=== PATIENT | female | born 1935 | race Caucasian/White ===

== ENCOUNTER 2016-08-13 01:15 | Emergency (ER) | payer MEDICARE, OTHER ==
[~2016-08-13] VITALS: Ht 154.9 cm; Wt 51.5 kg
[~2016-08-13 01:15] MED LIST: AMLO-145 PO; CLON-429 PO; DONE10TA7 PO; LOSA1TAB29 PO; METH-493 PO; METO-448 PO; ZOLP10TA PO
[2016-08-13 01:34] VITALS: Ht 154.9 cm; Wt 51.5 kg
[2016-08-13] MEDS ORDERED: NICARDipine HCL 30 MG CAPSULE PO ONE (03:30)
[2016-08-13 03:34] LABS: ADD SCAN DIFF NO
[2016-08-13 03:36] LABS: BASOPHIL # 0.1 10^3/ul (0.0-0.1); BASOPHILS % 0.6 % (0.0-2.0); EOSINOPHILS # 0.1 10^3/ul (0.0-0.5); EOSINOPHILS % 0.9 % (0.0-7.0); HEMATOCRIT 33.7 % (37.0-47.0); LYMPHOCYTES # 2.5 10^3/ul (0.8-2.9); LYMPHOCYTES % 31.3 % (15.0-51.0); MEAN CORPUSCULAR HEMOGLOBIN 29.3 pg (29.0-33.0); MEAN CORPUSCULAR HGB CONC 35.6 g/dl (32.0-37.0); MEAN CORPUSCULAR VOLUME 82.4 fl (82.0-101.0); MEAN PLATELET VOLUME 9.4 fl (7.4-10.4); MONOCYTE # 0.5 10^3/ul (0.3-0.9); MONOCYTES % 6.4 % (0.0-11.0); NEUTROPHIL # 4.8 10^3/ul (1.6-7.5); NEUTROPHILS % 60.5 % (39.0-77.0); PLATELET COUNT 381 10^3/UL (140-415); RED BLOOD COUNT 4.09 10^6/ul (4.20-5.40); RED CELL DISTRIBUTION WIDTH 12.8 % (11.5-14.5); WHITE BLOOD COUNT 7.9 10^3/ul (4.8-10.8)
[2016-08-13 04:05] LABS: ANION GAP 18 (8-16); BLOOD UREA NITROGEN 10 mg/dl (7-20); CALCIUM 10.1 mg/dl (8.4-10.2); CARBON DIOXIDE 21 mmol/L (21-31); CHLORIDE 91 mmol/L (97-110); GLUCOSE 114 mg/dl (70-220); POTASSIUM 3.4 mmol/L (3.5-5.1); SODIUM 127 mmol/L (135-144)
--- NOTE | 2016-08-13 04:18 | RADRPT ---
PROCEDURE: CT brain without contrast. CLINICAL INDICATION: Headache. TECHNIQUE: CT scan of the brain was performed on a multi-detector high-resolution CT scanner. Co ntiguous axial images were obtained from the skull base to the vertex without intravenous contrast. Coronal and sagittal reformatted images were also obtained. Images were reviewed on the PACS works tation. One or more of the following dose reduction techniques were used: - Automated exposure control. - Adjustment of the mA and/or kV according to patient size. - Use of iterative reconstruction technique. Exam CTD/vol = 45.01 mGy. Total exam DLP = 720.23 mGy-cm. COMPARISON: 06/21/2012. FINDINGS: The ventricles and cortical sulci are prominent consistent with mild age related volume loss. There is a cavum septum pellucidum. There are patchy areas of low attenuation within the periventricular and subcortical white matter consistent with mild chronic ischemic changes secondary to small vesse l disease. There is no mass effect or midline shift. There is no intracranial hemorrhage or abnorm al extra-axial collection. There are atherosclerotic calcifications within bilateral distal internal carotid arteries. The calvarium is intact. There is no evidence of fracture. Visualized paranasal sinuses and mastoi d air cells are clear. IMPRESSION: No acute intracranial abnormality identified. Mild age related volume loss and chronic ischemic white matter disease. Cerebral atherosclerosis. .Jefferson Ridley MD, MD Date Time Electronically viewed and signed by .Jefferson Ridley MD, MD on 08/13/2016 04:18 .T/
[2016-08-13 04:20] LABS: TROPONIN-I < 0.012 ng/ml (0.00-0.12)
[2016-08-13] MEDS ORDERED: ONDANSETRON 4 MG INJ IV STA (04:44)
[2016-08-13] MEDS ORDERED: LORAZEPAM 2 MG INJ IV ONE (05:00)
--- NOTE | 2016-08-13 05:01 | ERD ---
ER Documentation Chief Complaint Date/Time DATE: 08/13/16 TIME: 04:59 Chief Complaint High BP,nausea, body aches,BROWNLEE HPI This is a 80-year-old female who is here for hypertension. The patient states she can feel her blood pressure is high she has a slight headache and some dizziness. She has no chest pain or shortness of breath. Her usual blood pressure is 100-110 systolic and she said she feels bad even when her blood pressure can get around 140 systolic. At home before coming in her blood pressure was 201 systolic. No focal neurological complaints such as numbness weakness speech or visual change. Again, no chest pain or shortness of breath. ROS All systems reviewed and are negative except as per history of present illness. Medications Home Meds Reported Medications Metoprolol Tartrate* (Lopressor*) Unknown Strength Tab, PO, #60 TAB 05/29/15 Losartan/Hydrochlorothiazide (Hyzaar 100-25 Tablet) 1 Tab Tablet, 1 TAB PO DAILY 10/18/10 Donepezil* (Aricept*) 10 Mg Tablet, 10 MG PO DAILY 10/18/10 Amlodipine Besylate* (Amlodipine Besylate*) 5 Mg Tablet, 5 MG PO DAILY 10/18/10 Zolpidem Tartrate* (Ambien*) 10 Mg Tablet, 10 MG PO QHS 10/18/10 Clonazepam* (Klonopin*) 0.5 Mg Tab, 0.5 MG PO BID 10/18/10 Methimazole* (Methimazole*) 5 Mg Tablet, 5 MG PO DAILY 10/18/10 Allergies Allergies: Coded Allergies: No Known Allergy (Verified , 10/23/13) PMhx/Soc History of Surgery: Yes (hysterectomy) Anesthesia Reaction: No Hx Neurological Disorder: Yes (INSOMNIA; ALZHEIMERS) Hx Respiratory Disorders: No Hx Cardiac Disorders: Yes (HTN) Hx Psychiatric Problems: Yes (ALZHEIMERS) Hx Miscellaneous Medical Probl: No Hx Alcohol Use: No Hx Substance Use: No Hx Tobacco Use: No Smoking Status: Never smoker FmHx Family History: No coronary disease Physical Exam Vitals Vital Signs Date Time Temp Pulse Resp B/P Pulse Ox O2 Delivery O2 Flow Rate FiO2 08/13/16 05:36 98.9 91 12 131/68 98 Room Air 08/13/16 04:36 106 26 114/50 98 Room Air 08/13/16 04:11 95 18 144/61 98 Room Air 08/13/16 03:49 86 18 181/83 96 Room Air 08/13/16 01:34 99.0 89 18 184/86 96 Physical Exam Const: Well-developed, well-nourished Head: Atraumatic, normocephalic Eyes: Normal Conjunctiva, PERRLA, EOMI, normal sclera, no nystagmus ENT: Normal External Ears, Nose and Mouth, moist mucus membranes. Neck: Full range of motion. No meningismus, no lymphadenopathy. Resp: Clear to auscultation bilaterally, no wheezing, rhonchi, rales Cardio: Regular rate and rhythm, no murmurs, S1 S2 present Abd: Soft, non tender x 4, non distended. Normal bowel sounds, no guarding or rebound, no pulsitile abdominal masses or bruits Skin: No petechiae or rashes, no ecchymosis , no maculopapular rash Back: No midline or flank tenderness Ext: No cyanosis, or edema, FROM x 4, normal inspection, neurovascularly intact x 4 Neur: Awake and alert, STR 5/5 x 4, sensation intact x 4, no focal findings, cerebellum intact Psych: [Bit anxious Result Diagram: 08/13/16 0303 08/13/16 0303 Results 24 hrs Laboratory Tests Test 08/13/16 03:03 White Blood Count 7.910^3/ul Red Blood Count 4.0910^6/ul Hemoglobin 12.0g/dl Hematocrit 33.7% Mean Corpuscular Volume 82.4fl Mean Corpuscular Hemoglobin 29.3pg Mean Corpuscular Hemoglobin Concent 35.6g/dl Red Cell Distribution Width 12.8% Platelet Count 40046^3/UL Mean Platelet Volume 9.4fl Neutrophils % 60.5% Lymphocytes % 31.3% Monocytes % 6.4% Eosinophils % 0.9% Basophils % 0.6% Nucleated Red Blood Cells % 0.0/100WBC Neutrophils # 4.810^3/ul Lymphocytes # 2.510^3/ul Monocytes # 0.510^3/ul Eosinophils # 0.110^3/ul Basophils # 0.110^3/ul Nucleated Red Blood Cells # 0.010^3/ul Sodium Level 127mmol/L Potassium Level 3.4mmol/L Chloride Level 91mmol/L Carbon Dioxide Level 21mmol/L Anion Gap 18 Blood Urea Nitrogen 10mg/dl Creatinine 0.70mg/dl Glucose Level 114mg/dl Calcium Level 10.1mg/dl Troponin I < 0.012ng/ml Current Medications Medications (Trade) Dose Ordered Sig/Leander Route PRN Reason Start Time Stop Time Status Last Admin Dose Admin Nicardipine HCl (Cardene) 30 mg ONCE ONCE PO 08/13/16 03:30 08/13/16 03:31 DC 08/13/16 03:31 Ondansetron HCl (Zofran Inj) 4 mg ONCE STAT IV 08/13/16 04:44 08/13/16 04:45 DC 08/13/16 04:50 Lorazepam 0.5 mg 0.5 mg ONCE ONCE IV 08/13/16 05:00 08/13/16 05:01 DC 08/13/16 04:59 Sodium Chloride (NS) 250 ml @ 500 mls/hr Q30M ONCE IV 08/13/16 05:30 08/13/16 05:59 08/13/16 05:36 Procedures/MDM EKG: Rate/Rhythm: Sinus tachycardia heart rate [address] and T-wave abnormalities in the inferior and anterolateral leads. QRS, ST, QT: NORMAL OR, QRS, QT] Impression: Abnormal This EKG is exactly like last EKG done in May 2016 no changes PROCEDURE: CT brain without contrast. CLINICAL INDICATION: Headache. TECHNIQUE: CT scan of the brain was performed on a multi-detector high- resolution CT scanner. Contiguous axial images were obtained from the skull base to the vertex without intravenous contrast. Coronal and sagittal reformatted images were also obtained. Images were reviewed on the PACS workstation. One or more of the following dose reduction techniques were used: - Automated exposure control. - Adjustment of the mA and/or kV according to patient size. - Use of iterative reconstruction technique. Exam CTD/vol = 45.01 mGy. Total exam DLP = 720.23 mGy-cm. COMPARISON: 06/21/2012. FINDINGS: The ventricles and cortical sulci are prominent consistent with mild age related volume loss. There is a cavum septum pellucidum. There are patchy areas of low attenuation within the periventricular and subcortical white matter consistent with mild chronic ischemic changes secondary to small vessel disease. There is no mass effect or midline shift. There is no intracranial hemorrhage or abnormal extra-axial collection. There are atherosclerotic calcifications within bilateral distal internal carotid arteries. The calvarium is intact. There is no evidence of fracture. Visualized paranasal sinuses and mastoid air cells are clear. IMPRESSION: No acute intracranial abnormality identified. Mild age related volume loss and chronic ischemic white matter disease. Cerebral atherosclerosis. .Jefferson Ridley MD, Date Time Electronically viewed and signed by .Jefferson Ridley MD, MD on 08/13/2016 04:18 .T/ CC: DEANDRE MACIEL DO During her workup the patient became very anxious with nausea and said that she feels like she is going to . We will give her some Ativan 0.5 mg IV MSIR. So far blood work is unremarkable as well as CAT scan of head. Blood pressure is now 117/70 After the above she is feeling much better give her 2 50 cc normal saline a heart rate is now less than 90 -will discharge home Departure Diagnosis: Primary Impression: Hypertension Hypertension type: essential hypertension Qualified Code: I10 - Essential hypertension Condition: Stable DEANDRE MACIEL DO Aug 13, 2016 05:01
[2016-08-13] MEDS ORDERED: SOD CHLORIDE 0.9% 250 ML IV ONE (05:30)
[2016-08-13 05:36] VITALS: TEMP 98.9
[2016-08-13 06:07] VITALS: BP 126/63; PULSE 81; RESP 16
[2016-08-14] MEDS ORDERED: AMLO5TAB4 PO (20:13)
[2016-08-14] MEDS ORDERED: METO-448 PO (20:13)
[2016-08-14] MEDS ORDERED: RAMI2.5C36 PO (20:14)
[2016-08-14] MEDS ORDERED: ZOLP5TAB7 PO (20:14)
[2016-08-14] MEDS ORDERED: CARV3.1260 PO (20:15)
[2016-08-14] MEDS ORDERED: BENHCT2012 PO (20:15)
== END 2016-08-13 06:29 | disposition home or self-care (01) ==
LOC: E/R 01:15
DX: I10 Essential (primary) hypertension (principal); R51 Headache
CPT/HCPCS: 70450; 80048; 84484; 85025; 93005; J2060; J2405; J7040; 36415; 96374; 96375

== ENCOUNTER 2016-08-14 18:38 | Inpatient (IN) | payer MEDICARE, OTHER ==
[~2016-08-14] VITALS: Ht 149.9 cm; Wt 50.5 kg
[2016-08-14] MEDS ORDERED: ONDANSETRON 4 MG INJ IV STA (19:35)
[2016-08-14] MEDS ORDERED: FAMOTIDINE 20 MG INJ IV STA (19:35)
[2016-08-14] MEDS ORDERED: SOD CHLORIDE 0.9% 1,000 ML IV STA (19:35)
[2016-08-14 19:52] LABS: BASOPHILS % 0.4 % (0.0-2.0); EOSINOPHILS # 0.1 10^3/ul (0.0-0.5); EOSINOPHILS % 1.1 % (0.0-7.0); HEMATOCRIT 30.7 % (37.0-47.0); HEMOGLOBIN 10.8 g/dl (12.0-16.0); LYMPHOCYTES # 1.4 10^3/ul (0.8-2.9); LYMPHOCYTES % 19.6 % (15.0-51.0); MEAN CORPUSCULAR HEMOGLOBIN 28.5 pg (29.0-33.0); MEAN CORPUSCULAR HGB CONC 35.2 g/dl (32.0-37.0); MONOCYTE # 0.4 10^3/ul (0.3-0.9); MONOCYTES % 4.9 % (0.0-11.0); NEUTROPHIL # 5.4 10^3/ul (1.6-7.5); NEUTROPHILS % 73.7 % (39.0-77.0); PLATELET COUNT 343 10^3/UL (140-415); RED BLOOD COUNT 3.79 10^6/ul (4.20-5.40); RED CELL DISTRIBUTION WIDTH 12.6 % (11.5-14.5); WHITE BLOOD COUNT 7.3 10^3/ul (4.8-10.8)
[2016-08-14] MEDS ORDERED: AMLO5TAB4 PO (20:13)
[2016-08-14] MEDS ORDERED: METO-448 PO (20:13)
[2016-08-14] MEDS ORDERED: ZOLP5TAB7 PO (20:14)
[2016-08-14] MEDS ORDERED: RAMI2.5C36 PO (20:14)
[2016-08-14 20:15] LABS: ALANINE AMINOTRANSFERASE 29 IU/L (13-69); ALBUMIN 4.9 g/dl (3.3-4.9); ALBUMIN/GLOBULIN RATIO 1.75; ALKALINE PHOSPHATASE 81 IU/L (42-121); ANION GAP 14 (8-16); ASPARTATE AMINO TRANSFERASE 18 IU/L (15-46); BILIRUBIN,INDIRECT 0.3 mg/dl (0-1.1); BILIRUBIN,TOTAL 0.3 mg/dl (0.2-1.3); BLOOD UREA NITROGEN 9 mg/dl (7-20); CALCIUM 9.4 mg/dl (8.4-10.2); CARBON DIOXIDE 23 mmol/L (21-31); CHLORIDE 82 mmol/L (97-110); CREATININE 0.63 mg/dl (0.44-1.00); GLUCOSE 108 mg/dl (70-220); POTASSIUM 3.3 mmol/L (3.5-5.1); TOTAL PROTEIN 7.7 g/dl (6.1-8.1)
[2016-08-14] MEDS ORDERED: BENHCT2012 PO (20:15)
[2016-08-14] MEDS ORDERED: CARV3.1260 PO (20:15)
[2016-08-14 20:21] LABS: SODIUM 116 mmol/L (135-144)
[2016-08-14] MEDS ORDERED: SOD CHLORIDE 0.9% 1,000 ML IV SCH (20:23)
--- NOTE | 2016-08-14 20:27 | ERA ---
ER Documentation Chief Complaint Date/Time DATE: 08/14/16 TIME: 20:25 Chief Complaint vomiting/diarrhea/chest pain x 2 days HPI This is a 80-year-old female who presents to the emergency room for evaluation of nausea, vomiting, diarrhea and chest pain. This patient was seen yesterday in the emergency room for uncontrolled hypertension and her blood pressure was controlled and she was discharged home. According to the patient's daughter the patient has been vomiting and has had diarrhea for the past 4 days as well. The patient was complaining of centralized chest pain with no radiation associated with mild shortness of breath. ROS All systems reviewed and are negative except as per history of present illness. Medications Home Meds Reported Medications Carvedilol* (Carvedilol*) 3.125 Mg Tablet, 3.125 MG PO BID, #60 TAB 08/14/16 Olmesartan-Hydrochlorothiazide (Benicar HCT) 20-12.5 Mg Tablet, 1 TAB PO DAILY, #30 TAB 08/14/16 Ramipril (Ramipril) 2.5 Mg Capsule, 2.5 MG PO DAILY, CAP 08/14/16 Zolpidem Tartrate* (Zolpidem Tartrate*) 5 Mg Tablet, 5 MG PO QHS Y for INSOMNIA , #30 TAB 08/14/16 Metoprolol Tartrate* (Lopressor*) 25 Mg Tab, 25 MG PO DAILY, #60 TAB 08/14/16 Amlodipine Besylate* (Norvasc*) 5 Mg Tablet, 5 MG PO DAILY, TAB 08/14/16 Discontinued Reported Medications Metoprolol Tartrate* (Lopressor*) Unknown Strength Tab, PO, #60 TAB 05/29/15 Losartan/Hydrochlorothiazide (Hyzaar 100-25 Tablet) 1 Tab Tablet, 1 TAB PO DAILY 10/18/10 Donepezil* (Aricept*) 10 Mg Tablet, 10 MG PO DAILY 10/18/10 Amlodipine Besylate* (Amlodipine Besylate*) 5 Mg Tablet, 5 MG PO DAILY 10/18/10 Zolpidem Tartrate* (Ambien*) 10 Mg Tablet, 10 MG PO QHS 10/18/10 Clonazepam* (Klonopin*) 0.5 Mg Tab, 0.5 MG PO BID 10/18/10 Methimazole* (Methimazole*) 5 Mg Tablet, 5 MG PO DAILY 10/18/10 Allergies Allergies: Coded Allergies: No Known Allergy (Verified , 08/14/16) PMhx/Soc History of Surgery: Yes (hysterectomy) Anesthesia Reaction: No Hx Neurological Disorder: Yes (INSOMNIA; ALZHEIMERS) Hx Respiratory Disorders: No Hx Cardiac Disorders: Yes (HTN) Hx Psychiatric Problems: Yes (ALZHEIMERS) Hx Miscellaneous Medical Probl: No Hx Alcohol Use: No Hx Substance Use: No Hx Tobacco Use: No Smoking Status: Never smoker Physical Exam Vitals Vital Signs Date Time Temp Pulse Resp B/P Pulse Ox O2 Delivery O2 Flow Rate FiO2 08/14/16 18:42 99.3 86 20 180/79 98 Physical Exam INITIAL VITAL SIGNS: Reviewed by me GENERAL: The patient is well developed and appropriate for usual state of health in no apparent distress HEENT: Pupils equal, round, and reactive to light. EOMI. There is no scleral icterus. NECK: C-spine is soft and supple, there is no meningismus. There is no cervical lymphadenopathy. LUNGS: Clear to auscultation bilaterally. There are no rales, wheezes or rhonchi. HEART: Regular rate and rhythm, no murmurs, clicks, rubs or gallops. ABDOMEN: Soft, non-tender, non-distended. There are bowel sounds in all four quadrants. No rebound or guarding. EXTREMITIES: There is no peripheral cyanosis or edema. No focal swelling or erythema. NEUROLOGICAL: The patient moves all four extremities with 5/5 strength. Cranial nerves II - XII are intact. Normal gait. Alert and oriented SKIN: There is no apparent rash or petechiae. HEME/LYMPHATIC: There is no evidence of excessive bruising or lymphedema. PSYCHIATRIC: The patient does not appear anxious or depressed. Result Diagram: 08/14/16193908/14/161939 Results 24 hrs Laboratory Tests Test 08/14/16 19:40 White Blood Count 7.310^3/ul Red Blood Count 3.7910^6/ul Hemoglobin 10.8g/dl Hematocrit 30.7% Mean Corpuscular Volume 81.0fl Mean Corpuscular Hemoglobin 28.5pg Mean Corpuscular Hemoglobin Concent 35.2g/dl Red Cell Distribution Width 12.6% Platelet Count 90960^3/UL Mean Platelet Volume 9.0fl Neutrophils % 73.7% Lymphocytes % 19.6% Monocytes % 4.9% Eosinophils % 1.1% Basophils % 0.4% Nucleated Red Blood Cells % 0.0/100WBC Neutrophils # 5.410^3/ul Lymphocytes # 1.410^3/ul Monocytes # 0.410^3/ul Eosinophils # 0.110^3/ul Basophils # 0.010^3/ul Nucleated Red Blood Cells # 0.010^3/ul Sodium Level 116mmol/L Potassium Level 3.3mmol/L Chloride Level 82mmol/L Carbon Dioxide Level 23mmol/L Anion Gap 14 Blood Urea Nitrogen 9mg/dl Creatinine 0.63mg/dl Glucose Level 108mg/dl Calcium Level 9.4mg/dl Total Bilirubin 0.3mg/dl Direct Bilirubin 0.00mg/dl Indirect Bilirubin 0.3mg/dl Aspartate Amino Transf (AST/SGOT) 18IU/L Alanine Aminotransferase (ALT/SGPT) 29IU/L Alkaline Phosphatase 81IU/L Troponin I Pending Total Protein 7.7g/dl Albumin 4.9g/dl Globulin 2.80g/dl Albumin/Globulin Ratio 1.75 Lipase 208U/L Current Medications Medications (Trade) Dose Ordered Sig/Leander Route PRN Reason Start Time Stop Time Status Last Admin Dose Admin Sodium Chloride (NS) 1,000 ml @ 1,000 mls/hr Q1H STAT IV 08/14/16 19:35 08/14/16 20:34 08/14/16 20:10 Ondansetron HCl (Zofran Inj) 4 mg ONCE STAT IV 08/14/16 19:35 08/14/16 19:36 DC 08/14/16 20:10 Famotidine (Pepcid Iv) 20 mg ONCE STAT IV 08/14/16 19:35 08/14/16 19:36 DC 08/14/16 20:10 Procedures/MDM EKG: Rate/Rhythm: [Normal Sinus Rhythm] QRS, ST, T-waves: [No changes consistent w/ acute ischemia] Impression: [No evidence of ischemia or arrhythmia] Chest X-ray 1V Interpreted by me: Soft Tissue: No acute abnormalities Bones: No acute abnormalities Mediastinum/Cardiac Silhouette/Lungs: [No acute abnormalities] This 80-year-old female presents to the ER for evaluation of nausea, vomiting, diarrhea and chest pain. When I evaluated this patient she did have dry mucous members however she is in no respiratory distress. Lab work was obtained including EKG which is nonischemic. Troponins negative. However this patient' s sodium came back at 116. Yesterday was greater than 125. Given this patient' s rapid drop in her sodium she will be placed in for admission at this time for hyponatremia, chest pain, nausea vomiting. Patient will be placed on the telemetry floor under the care of Dr. brayan Marquez Diagnosis: Primary Impression: Hyponatremia Additional Impressions: Hypokalemia Nausea, vomiting, and diarrhea Chest pain Condition: Stable SAMIRA MCDONNELL DO Aug 14, 2016 20:27
[2016-08-14] MEDS ORDERED: ONDANSETRON 4 MG INJ IV PRN ×2 (20:30→21:00)
[2016-08-14] MEDS ORDERED: POTASSIUM CHLORIDE 20 MEQ in SOD CHLORIDE 0.9% 100 ML IVPB ONE (20:30)
[2016-08-14] MEDS ORDERED: ACETAMINOPHEN 325 MG TAB PO PRN ×2 (20:30→21:00)
[2016-08-14 20:34] LABS: TROPONIN-I < 0.012 ng/ml (0.00-0.12)
[2016-08-14 20:50] LABS: ADD UMIC YES; UR ASCORBIC ACID NEGATIVE (NEGATIVE); UR BILIRUBIN (Dip) NEGATIVE (NEGATIVE); UR BLOOD (Dip) 1+ mg/dL (NEGATIVE); UR CLARITY CLEAR (CLEAR); UR COLOR STRAW (YELLOW); UR GLUCOSE (Dip) NEGATIVE (NEGATIVE); UR KETONES (Dip) NEGATIVE (NEGATIVE); UR LEUKOCYTE ESTERASE (Dip) 1+ Leu/ul (NEGATIVE); UR NITRITE (Dip) NEGATIVE (NEGATIVE); UR RBC 1 /HPF (0-5); UR SPECIFIC GRAVITY (Dip) 1.005 (1.003-1.030); UR TOTAL PROTEIN (Dip) NEGATIVE (NEGATIVE); UR UROBILINOGEN (Dip) NEGATIVE (NEGATIVE)
--- NOTE | 2016-08-14 20:55 | RADRPT ---
PROCEDURE: XR Chest. CLINICAL INDICATION: 80-year-old female with abdominal pain. TECHNIQUE: Single frontal view of the chest was obtained. COMPARISON: Chest x-ray 05/30/2015 12:00 a.m. FINDINGS: Monitoring electrodes are projecting across the chest. The soft tissues are otherwise unremarkable. There are degenerative osteophytes in the thoracic spine. The bones are rarefied. The heart is m ildly enlarged. The cardiomediastinal silhouette and hilar structures are normal. The pulmonary vas culature is normal. There are vascular calcifications in the aortic arch. There are interstitial ch anges which are stable in the perihilar areas and bases of the lungs. No acute infiltrate is identi fied. The costophrenic angles are normal. IMPRESSION: 1. There are chronic interstitial changes in the perihilar areas and bases of the lungs. 2. Cardiomegaly with atherosclerotic calcifications in the aortic arch. 3. 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 3. No evidence of active cardiopulmonary disease at this time. RPTAT:AAJJ Physician Mell Date Time Electronically viewed and signed by Physician Mell on 08/14/2016 20:55 JM/
[2016-08-14] MEDS ORDERED: NACL 0.9% 3 ML SYG IV SCH (21:00)
[2016-08-14 23:40] LABS: CALCIUM 8.5 mg/dl (8.4-10.2); CREATININE 0.6 mg/dl (0.44-1.00); POTASSIUM 3.6 mmol/L (3.5-5.1)
[2016-08-15] VITALS (14 sets, daily range): BP systolic 112–153; BP diastolic 59–81; PULSE 59–79; RESP 18–19; TEMP 97.3; Ht 149.9 cm; Wt 50.5 kg
[2016-08-15] MEDS ORDERED: ZOLPIDEM 5 MG TAB PO ONE (01:40)
--- NOTE | 2016-08-15 01:50 | HP ---
Date/Time of Note Date/Time of Note DATE: 08/15/16 TIME: 01:46 Assessment/Plan VTE Prophylaxis VTE Prophylaxis Intervention: SCD's Assessment/Plan Chief Complaint/Hosp Course This is a 80-year-old female being admitted to the telemetry floor for: #1 chest pain: Currently patient is chest pain-free. This likely could have been related to patient's uncontrolled blood pressure however given her history we will rule out acs, trend troponins, echo, cardio consult #2 uncontrolled htn: continue current home meds at this time, except we will discontinue HCTZ secondary to hyponatremia. Monitor bp and adjust meds as indicated. #3 Hyponatremia: secondary likely to poor po intake as well as possible overmedication with HCTZ. Will discontinue hctz. We will carefully raise sodium. start iv fluids NS at 50cc/hr. Check bmp q 4hrs and adjust fluids as necessarily being careful not to correct sodium more than 10 meq within 24hrs. Consult nephrology #4 DVT and GI prophylaxis: SCDs, Protonix Further treatment strategy will be implemented as per the clinical course Problems: HPI/ROS Admit Date/Time Admit Date/Time Aug 14, 2016 at 20:23 Hx of Present Illness cc: elevated bp, chest presssure. This is a 80-year-old female who presents to the emergency room for evaluation of nausea, vomiting, diarrhea and chest pain. This patient was seen yesterday in the emergency room for uncontrolled hypertension and her blood pressure was controlled and she was discharged home. According to the patient's daughter the patient has been vomiting and has had diarrhea for the past 4 days as well. The patient was complaining of centralized chest pain with no radiation associated with mild shortness of breath. She also states that the current time her blood pressure was not controlled at home and she took some extra doses of her blood pressure medications and it still did not help with her blood pressure. allergies: nkda meds: see APR MOOKIE Const: As per HPI Eyes : No pain discharge or redness or change in visual acuity ENT: No pain, sore throat, congestion, congestion, dysphagia or discharge Respiratory: No shortness of breath, cough, sputum, wheezing, or pleuritic pain Cardiovascular: As per HPI GI : no change in appetite, abdominal pain, nausea, vomiting, diarrhea, constipation, or change in the color his stool Genitourinary: No dysuria, hematuria, flank pain , discharge or CVA tenderness Musculoskeletal: No joint pain, back pain, neck pain, restricted range of motion in neck or joints Skin: No rash, bruising or hives Neuro: No headache, dizziness, syncope, seizure, focal weakness Endocrine: No polyuria, polydipsia, temperature intolerance Psych: No hallucination, depression, anxiety or suicidal ideation PMH/Family/Social Past Medical History htn, hld Past Surgical History Past Surgical Hx: no surgical history Family History Significant Family History: no pertinent family hx Social History Alcohol Use: none Smoking Status: Never smoker Drug Use: none Exam/Review of Systems Vital Signs Vitals Vital Signs Date Time Temp Pulse Resp B/P Pulse Ox O2 Delivery O2 Flow Rate FiO2 08/15/16 00:48 97.7 67 18 153/81 98 08/15/16 00:03 Room Air Exam Exam General: Patient is a frail a pleasant female in no acute distress HEENT: Atraumatic, normocephalic. The pupils are equal, round and reactive. Extraocular motor are intact, moist mucous membranes Neck: Supple with full range of motion. No rigidity or meningismus Chest: Nontender Lungs: Clear to auscultation bilaterally no crackles rales or wheezing Heart: Normal S1-S2, Regular rhythm and rate. No overt appreciable murmur Abdomen: Soft , nontender, nondistended , bowel sounds are present. No guarding no rebound tenderness , No masses or organomegaly. No costovertebral temporal angle mass Extremities: Normal to inspection, no edema no cyanosis Neurologic: Normal mental status, speech normal, cranial nerves II through XII are intact, motor and sensory are intact, no focal weakness Skin: mild tenting of the skin Additional Comments PROCEDURE: XR Chest. CLINICAL INDICATION: 80-year-old female with abdominal pain. TECHNIQUE: Single frontal view of the chest was obtained. COMPARISON: Chest x-ray 05/30/2015 12:00 a.m. FINDINGS: Monitoring electrodes are projecting across the chest. The soft tissues are otherwise unremarkable. There are degenerative osteophytes in the thoracic spine. The bones are rarefied. The heart is mildly enlarged. The cardiomediastinal silhouette and hilar structures are normal. The pulmonary vasculature is normal. There are vascular calcifications in the aortic arch. There are interstitial changes which are stable in the perihilar areas and bases of the lungs. No acute infiltrate is identified. The costophrenic angles are normal. IMPRESSION: 1. There are chronic interstitial changes in the perihilar areas and bases of the lungs. 2. Cardiomegaly with atherosclerotic calcifications in the aortic arch. 3. 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 3. No evidence of active cardiopulmonary disease at this time. EKG: Rate/Rhythm: [Normal Sinus Rhythm] QRS, ST, T-waves: [No changes consistent w/ acute ischemia] As per ED physician document Labs Result Diagram: 08/14/16 19408/14/16 2300 Medications Medications Current Medications Sodium Chloride (NS) 1,000 ml @ 30 mls/hr Q24H IV Last administered on t 21:21; Admin Dose 50 MLS/HR; Start 08/14/16 at 20:23 Ondansetron HCl (Zofran Inj) 4 mg Q6H PRN IV NAUSEA AND/OR VOMITING; Start at 21:00 Acetaminophen (Tylenol Tab) 650 mg Q6H PRN PO PAIN LEVEL 1-3 OR FEVER; Start at 21:00 Pantoprazole (Protonix Iv) 40 mg DAILY@06 IV ; Start 08/15/16 at 06:00 JUAN DAVID CHU Aug 15, 2016 01:50
[2016-08-15] MEDS ORDERED: ZOLPIDEM 5 MG TAB PO PRN (02:00)
[2016-08-15 04:02] LABS: CALCIUM 8.8 mg/dl (8.4-10.2); CREATININE 0.65 mg/dl (0.44-1.00); POTASSIUM 3.4 mmol/L (3.5-5.1)
[2016-08-15 04:09] LABS: BASOPHILS % 0.5 % (0.0-2.0); EOSINOPHILS # 0.2 10^3/ul (0.0-0.5); EOSINOPHILS % 3.3 % (0.0-7.0); LYMPHOCYTES # 2.8 10^3/ul (0.8-2.9); LYMPHOCYTES % 45.5 % (15.0-51.0); MEAN CORPUSCULAR HEMOGLOBIN 28.3 pg (29.0-33.0); MEAN CORPUSCULAR HGB CONC 34.5 g/dl (32.0-37.0); MEAN CORPUSCULAR VOLUME 82.2 fl (82.0-101.0); MEAN PLATELET VOLUME 9.1 fl (7.4-10.4); MONOCYTE # 0.4 10^3/ul (0.3-0.9); MONOCYTES % 7.1 % (0.0-11.0); NEUTROPHIL # 2.6 10^3/ul (1.6-7.5); NEUTROPHILS % 43.3 % (39.0-77.0); PLATELET COUNT 314 10^3/UL (140-415); RED BLOOD COUNT 3.53 10^6/ul (4.20-5.40); RED CELL DISTRIBUTION WIDTH 12.5 % (11.5-14.5)
[2016-08-15 04:12] LABS: ADD SCAN DIFF NO
[2016-08-15] MEDS: PANTOPRAZOLE 40 MG INJ IV SCH (05:23)
[2016-08-15 07:52] LABS: CREATINE KINASE 64 IU/L (23-200)
[2016-08-15 07:53] LABS: CALCIUM 9.2 mg/dl (8.4-10.2); CREATININE 0.66 mg/dl (0.44-1.00); POTASSIUM 3.5 mmol/L (3.5-5.1)
[2016-08-15 08:02] LABS: CK-MB 1.27 ng/ml (0.0-2.4); TROPONIN-I < 0.012 ng/ml (0.00-0.12)
[2016-08-15] MEDS ORDERED: DEXTROSE 5% 1,000 ML IV SCH (09:00)
[2016-08-15] MEDS: BENAZEPRIL 10 MG TAB PO SCH (09:32)
[2016-08-15] MEDS: METOPROLOL 25 MG TAB PO SCH (09:32)
[2016-08-15] MEDS: AMLODIPINE 5 MG TAB PO SCH (09:33)
[2016-08-15 11:48] LABS: CALCIUM 9.5 mg/dl (8.4-10.2); CREATININE 0.69 mg/dl (0.44-1.00); POTASSIUM 3.6 mmol/L (3.5-5.1)
[2016-08-15 12:42] LABS: CREATINE KINASE 57 IU/L (23-200)
--- NOTE | 2016-08-15 12:48 | PN ---
Date/Time of Note Date/Time of Note DATE: 08/15/16 TIME: 12:47 Assessment/Plan VTE Prophylaxis VTE Prophylaxis Intervention: SCD's Lines/Catheters IV Catheter Type (from Nrs): Peripheral IV Urinary Cath still in place: No Assessment/Plan Assessment/Plan This is a 80-year-old female being admitted to the telemetry floor for: #1 chest pain: Currently patient is chest pain-free. This likely could have been related to patient's uncontrolled blood pressure however given her history we will rule out acs, trend troponins, echo, cardio consult -test results pending #2 uncontrolled htn: continue current home meds at this time, except we will discontinue HCTZ secondary to hyponatremia. Monitor bp and adjust meds as indicated. BP ok here. Given her advanced age, goal <150/90 #3 Hyponatremia: secondary likely to poor po intake as well as possible overmedication with HCTZ. Significantly improved. WILL STOP IVFs given improvement and recheck Na this afteernoon #4 DVT prophylaxis: SCDs, Subjective 24 Hr Interval Summary Free Text/Dictation Pt feels well. No more chest pain Exam/Review of Systems Vital Signs Vitals Vital Signs Date Time Temp Pulse Resp B/P Pulse Ox O2 Delivery O2 Flow Rate FiO2 08/15/16 12:00 64 08/15/16 11:15 98.2 18 118/59 97 08/15/16 00:03 Room Air Intake and Output 08/14/16 08/14/16 08/15/16 15:00 23:00 07:00 Intake Total 160 ml Balance 160 ml Exam nad laying in bed no mrg lungs clear abd soft no le edema na 131 on most recent ChemP Results Result Diagram: 08/15/16 0315 08/15/16 1045 Results 24 hrs Laboratory Tests Test 08/14/16 19:40 08/14/16 20:33 08/14/16 20:35 08/14/16 23:00 White Blood Count 7.3 Red Blood Count 3.79 L Hemoglobin 10.8 L Hematocrit 30.7 L Mean Corpuscular Volume 81.0 L Mean Corpuscular Hemoglobin 28.5 L Mean Corpuscular Hemoglobin Concent 35.2 Red Cell Distribution Width 12.6 Platelet Count 343 Mean Platelet Volume 9.0 Neutrophils % 73.7 Lymphocytes % 19.6 Monocytes % 4.9 Eosinophils % 1.1 Basophils % 0.4 Nucleated Red Blood Cells % 0.0 Neutrophils # 5.4 Lymphocytes # 1.4 Monocytes # 0.4 Eosinophils # 0.1 Basophils # 0.0 Nucleated Red Blood Cells # 0.0 Sodium Level 116 *L 120 L Potassium Level 3.3 L 3.6 Chloride Level 82 L 89 L Carbon Dioxide Level 23 22 Anion Gap 14 13 Blood Urea Nitrogen 9 7 Creatinine 0.63 0.60 Glucose Level 108 97 Osmolality 242 L Calcium Level 9.4 8.5 Total Bilirubin 0.3 Direct Bilirubin 0.00 Indirect Bilirubin 0.3 Aspartate Amino Transf (AST/SGOT) 18 Alanine Aminotransferase (ALT/SGPT) 29 Alkaline Phosphatase 81 Troponin I < 0.012 Total Protein 7.7 Albumin 4.9 Globulin 2.80 Albumin/Globulin Ratio 1.75 Lipase 208 Urine Osmolality 262 Urine Random Sodium 71 Urine Color STRAW Urine Clarity CLEAR Urine pH 5.0 Urine Specific [place] 1.005 Urine Ketones NEGATIVE Urine Nitrite NEGATIVE Urine Bilirubin NEGATIVE Urine Urobilinogen NEGATIVE Urine Leukocyte Esterase 1+ H Urine Microscopic RBC 1 Urine Microscopic WBC 0 Urine Hemoglobin 1+ H Urine Glucose NEGATIVE Urine Total Protein NEGATIVE Test 08/15/16 03:15 08/15/16 06:30 08/15/16 10:45 08/15/16 11:55 White Blood Count 6.0 Red Blood Count 3.53 L Hemoglobin 10.0 L Hematocrit 29.0 L Mean Corpuscular Volume 82.2 Mean Corpuscular Hemoglobin 28.3 L Mean Corpuscular Hemoglobin Concent 34.5 Red Cell Distribution Width 12.5 Platelet Count 314 Mean Platelet Volume 9.1 Neutrophils % 43.3 Lymphocytes % 45.5 Monocytes % 7.1 Eosinophils % 3.3 Basophils % 0.5 Nucleated Red Blood Cells % 0.0 Neutrophils # 2.6 Lymphocytes # 2.8 Monocytes # 0.4 Eosinophils # 0.2 Basophils # 0.0 Nucleated Red Blood Cells # 0.0 Sodium Level 126 L 130 L 131 L Potassium Level 3.4 L 3.5 3.6 Chloride Level 93 L 92 L 92 L Carbon Dioxide Level 23 25 23 Anion Gap 13 17 H 20 H Blood Urea Nitrogen 7 8 7 Creatinine 0.65 0.66 0.69 Glucose Level 91 87 130 # Calcium Level 8.8 9.2 9.5 Thyroid Stimulating Hormone (TSH) 1.180 Creatine Kinase 64 57 Creatine Kinase Index 2.0 Pending Creatinine Kinase MB (Mass) 1.27 Pending Troponin I < 0.012 Pending Uric Acid 6.1 Random Cortisol 10.8 Medications Medications Current Medications Ondansetron HCl (Zofran Inj) 4 mg Q6H PRN IV NAUSEA AND/OR VOMITING; Start at 21:00 Acetaminophen (Tylenol Tab) 650 mg Q6H PRN PO PAIN LEVEL 1-3 OR FEVER; Start at 21:00 Pantoprazole (Protonix Iv) 40 mg DAILY@06 IV Last administered on 08/15/16 05: 23; Admin Dose 40 MG; Start 08/15/16 at 06:00 Amlodipine Besylate (Norvasc) 5 mg DAILY PO Last administered on 08/15/16 09:33 ; Admin Dose 5 MG; Start 08/15/16 at 09:00 Carvedilol (Coreg) 3.125 mg BID PO Last administered on 08/15/16 09:33; Admin Dose 3.125 MG; Start 08/15/16 at 09:00 Metoprolol Tartrate (Lopressor) 25 mg DAILY PO Last administered on 08/15/16 09 :32; Admin Dose 25 MG; Start 08/15/16 at 09:00 Zolpidem Tartrate (Ambien) 5 mg QHS PRN PO INSOMNIA; Start 08/15/16 at 02:00 Benazepril HCl (Lotensin) 10 mg DAILY PO Last administered on 08/15/16 09:32; Admin Dose 10 MG; Start 08/15/16 at 09:00 BAKARI ATWOOD MD Aug 15, 2016 12:48
[2016-08-15 12:52] LABS: CK-MB 0.97 ng/ml (0.0-2.4)
[2016-08-15 12:53] LABS: TROPONIN-I < 0.012 ng/ml (0.00-0.12)
[2016-08-15] MEDS: DEXTROSE 5% 1,000 ML IV SCH ×2 (14:06→22:23)
[2016-08-15 15:17] LABS: CREATININE 0.76 mg/dl (0.44-1.00); POTASSIUM 3.6 mmol/L (3.5-5.1)
--- NOTE | 2016-08-15 15:32 | CONS ---
Date/Time of Note Date/Time of Note DATE: 08/15/16 TIME: 15:27 Assessment/Plan Assessment/Plan Additional Assessment/Plan 1. Chest pain - 80-year-old female with HTN,CAD, dementia - presents to the emergency room for evaluation of nausea, vomiting, diarrhea and chest pain. This patient was seen yesterday in the emergency room for uncontrolled hypertension and her blood pressure was controlled and she was discharged home. According to the patient's daughter the patient has been vomiting and has had diarrhea for the past 4 days as well. The patient was complaining of centralized chest pain with no radiation associated with mild shortness of breath. EKG reviewed - no evidence of tawana/tach/ST-T changes - r/o TN. Now low Na+ - will restratify with Stress test when sodium improves. 2. HTN - well Rx now. Adjus trx as needed 3. SOB - ECHO to follow, not in CHF by exam 4. Abn EKG - no n-spec ST-T changes, no signs of ischemia 5, HypoNa+ - Rx with primary team Consultation Date/Type/Reason Admit Date/Time Aug 14, 2016 at 20:23 Initial Consult Date 24 HR Interval Summary Free Text/Dictation Cardiology Consult CC: CP 80-year-old female with HTN,CAD, dementia - presents to the emergency room for evaluation of nausea, vomiting, diarrhea and chest pain. This patient was seen yesterday in the emergency room for uncontrolled hypertension and her blood pressure was controlled and she was discharged home. According to the patient' s daughter the patient has been vomiting and has had diarrhea for the past 4 days as well. The patient was complaining of centralized chest pain with no radiation associated with mild shortness of breath. EKG reviewed - no evidence of tawana/tach/ST-T changes - r/o TN. Now low Na+ - will restratify with Stress test when sodium improves. PMH: HTM, CAD, dementia, dyslipidemia Meds: Reviewed All: NKDA SOC: no EtOH, no tobacco Exam/Review of Systems Vital Signs Vitals Vital Signs Date Time Temp Pulse Resp B/P Pulse Ox O2 Delivery O2 Flow Rate FiO2 08/15/16 15:20 98.3 66 19 112/62 98 08/15/16 00:03 Room Air Intake and Output 08/14/16 08/14/16 08/15/16 15:00 23:00 07:00 Intake Total 160 ml Balance 160 ml Exam ROS: No fever, no chills, no nausea, no vomiting, no diarrhea/constipation No recent weight changes + chest pain (now resolved), no PND, no orthopnea No dizziness, blurred vision No thirst, no heat or cold intolerance General: WN/WD/NAD, AOx 1-2 HEENT: Unicetric/atraumatic/EOMI NECK: JVD elevated, no thyromegaly Lymph: no lymphadenopathy HEART: regular with no S3, II/ systolic murmur at apex LUNGS: Coarse sounds ABD: soft, NT, ND, +BS : Intact Neuro: non focal SKIN: chronic changes EXT: trace edema Results Result Diagram: 08/15/16 0315 08/15/16 1045 Results 24 hrs Laboratory Tests Test 08/14/16 19:40 08/14/16 20:33 08/14/16 20:35 08/14/16 23:00 White Blood Count 7.3 Red Blood Count 3.79 L Hemoglobin 10.8 L Hematocrit 30.7 L Mean Corpuscular Volume 81.0 L Mean Corpuscular Hemoglobin 28.5 L Mean Corpuscular Hemoglobin Concent 35.2 Red Cell Distribution Width 12.6 Platelet Count 343 Mean Platelet Volume 9.0 Neutrophils % 73.7 Lymphocytes % 19.6 Monocytes % 4.9 Eosinophils % 1.1 Basophils % 0.4 Nucleated Red Blood Cells % 0.0 Neutrophils # 5.4 Lymphocytes # 1.4 Monocytes # 0.4 Eosinophils # 0.1 Basophils # 0.0 Nucleated Red Blood Cells # 0.0 Sodium Level 116 *L 120 L Potassium Level 3.3 L 3.6 Chloride Level 82 L 89 L Carbon Dioxide Level 23 22 Anion Gap 14 13 Blood Urea Nitrogen 9 7 Creatinine 0.63 0.60 Glucose Level 108 97 Osmolality 242 L Calcium Level 9.4 8.5 Total Bilirubin 0.3 Direct Bilirubin 0.00 Indirect Bilirubin 0.3 Aspartate Amino Transf (AST/SGOT) 18 Alanine Aminotransferase (ALT/SGPT) 29 Alkaline Phosphatase 81 Troponin I < 0.012 Total Protein 7.7 Albumin 4.9 Globulin 2.80 Albumin/Globulin Ratio 1.75 Lipase 208 Urine Osmolality 262 Urine Random Sodium 71 Urine Color STRAW Urine Clarity CLEAR Urine pH 5.0 Urine Specific [place] 1.005 Urine Ketones NEGATIVE Urine Nitrite NEGATIVE Urine Bilirubin NEGATIVE Urine Urobilinogen NEGATIVE Urine Leukocyte Esterase 1+ H Urine Microscopic RBC 1 Urine Microscopic WBC 0 Urine Hemoglobin 1+ H Urine Glucose NEGATIVE Urine Total Protein NEGATIVE Test 08/15/16 03:15 08/15/16 06:30 08/15/16 10:45 08/15/16 11:55 White Blood Count 6.0 Red Blood Count 3.53 L Hemoglobin 10.0 L Hematocrit 29.0 L Mean Corpuscular Volume 82.2 Mean Corpuscular Hemoglobin 28.3 L Mean Corpuscular Hemoglobin Concent 34.5 Red Cell Distribution Width 12.5 Platelet Count 314 Mean Platelet Volume 9.1 Neutrophils % 43.3 Lymphocytes % 45.5 Monocytes % 7.1 Eosinophils % 3.3 Basophils % 0.5 Nucleated Red Blood Cells % 0.0 Neutrophils # 2.6 Lymphocytes # 2.8 Monocytes # 0.4 Eosinophils # 0.2 Basophils # 0.0 Nucleated Red Blood Cells # 0.0 Sodium Level 126 L 130 L 131 L Potassium Level 3.4 L 3.5 3.6 Chloride Level 93 L 92 L 92 L Carbon Dioxide Level 23 25 23 Anion Gap 13 17 H 20 H Blood Urea Nitrogen 7 8 7 Creatinine 0.65 0.66 0.69 Glucose Level 91 87 130 # Calcium Level 8.8 9.2 9.5 Thyroid Stimulating Hormone (TSH) 1.180 Creatine Kinase 64 57 Creatine Kinase Index 2.0 1.7 Creatinine Kinase MB (Mass) 1.27 0.97 Troponin I < 0.012 < 0.012 Uric Acid 6.1 Random Cortisol 10.8 Medications Medications Current Medications Ondansetron HCl (Zofran Inj) 4 mg Q6H PRN IV NAUSEA AND/OR VOMITING; Start at 21:00 Acetaminophen (Tylenol Tab) 650 mg Q6H PRN PO PAIN LEVEL 1-3 OR FEVER; Start at 21:00 Pantoprazole (Protonix Iv) 40 mg DAILY@06 IV Last administered on 08/15/16 05: 23; Admin Dose 40 MG; Start 08/15/16 at 06:00 Amlodipine Besylate (Norvasc) 5 mg DAILY PO Last administered on 08/15/16 09:33 ; Admin Dose 5 MG; Start 08/15/16 at 09:00 Carvedilol (Coreg) 3.125 mg BID PO Last administered on 08/15/16 09:33; Admin Dose 3.125 MG; Start 08/15/16 at 09:00 Metoprolol Tartrate (Lopressor) 25 mg DAILY PO Last administered on 08/15/16 09 :32; Admin Dose 25 MG; Start 08/15/16 at 09:00 Zolpidem Tartrate (Ambien) 5 mg QHS PRN PO INSOMNIA; Start 08/15/16 at 02:00 Benazepril HCl 10 mg 10 mg DAILY PO Last administered on 08/15/16 09:32; Admin Dose 10 MG; Start 08/15/16 at 09:00 Dextrose (D5W) 1,000 ml @ 125 mls/hr Q8H IV Last administered on 08/15/16 14: 06; Admin Dose 125 MLS/HR; Start 08/15/16 at 13:30 CHLOE PRITCHARD MD Aug 15, 2016 15:32
--- NOTE | 2016-08-15 15:42 | CONS ---
Date/Time of Note Date/Time of Note DATE: 08/15/16 TIME: 15:31 Assessment/Plan Assessment/Plan Additional Assessment/Plan 1. hyponatremia, acute vs subacute vs chronic -etiology likely volume depletion for gi loss and hctz, hypokalemia -pt sodium corrected from 116 to 130 meq/l with ivf plan -will start pt on d5w to lower na level to prevent correction of no greater 10- 12 meq/l in 24 period and 18 meq/l in 48hr period -will monitor serial na level ever 2-4 hrs -will consider ddavp, monitor strict i/o's 2. htn -hold hctz -cont norvasc, ccb 3.chest pain: Currently patient is chest pain-free. -r/o acs -check serial trop 4. anemia -monitor h/h level Consultation Date/Type/Reason Admit Date/Time Aug 14, 2016 at 20:23 Reason for Consultation hyponatremia Hx of Present Illness 80-year-old female who presents to the emergency room for evaluation of nausea, vomiting, diarrhea and chest pain. This patient was seen yesterday in the emergency room for uncontrolled hypertension and her blood pressure was controlled and she was discharged home. According to the patient's daughter the patient has been vomiting and has had diarrhea for the past 4 days as well. The patient was complaining of centralized chest pain with no radiation associated with mild shortness of breath. She also states that the current time her blood pressure was not controlled at home and she took some extra doses of her blood pressure medications and it still did not help with her blood pressure. In terms of pt hyponatremia, she denies any prior history. She takes hctz as outpt and admits to having poor oral intake last several days. She admits to drinking water. per hpi Past Medical History htn Past Surgical History Past Surgical Hx: no surgical history Social History Alcohol Use: none Smoking Status: Never smoker Drug Use: none Exam/Review of Systems Vital Signs Vitals Vital Signs Date Time Temp Pulse Resp B/P Pulse Ox O2 Delivery O2 Flow Rate FiO2 08/15/16 15:20 98.3 66 19 112/62 98 08/15/16 00:03 Room Air Intake and Output 08/14/16 08/14/16 08/15/16 14:59 22:59 06:59 Intake Total 160 ml Balance 160 ml Exam General: Patient is a frail a pleasant female in no acute distress HEENT: Atraumatic, normocephalic. The pupils are equal, round and reactive. Extraocular motor are intact, moist mucous membranes Neck: Supple with full range of motion. No rigidity or meningismus Chest: Nontender Lungs: Clear to auscultation bilaterally no crackles rales or wheezing Heart: Normal S1-S2, Regular rhythm and rate. No overt appreciable murmur Abdomen: Soft , nontender, nondistended , bowel sounds are present. No guarding no rebound tenderness , No masses or organomegaly. No costovertebral temporal angle mass Extremities: Normal to inspection, no edema no cyanosis Neurologic: Normal mental status, speech normal, cranial nerves II through XII are intact, motor and sensory are intact, no focal weakness Results Result Diagram: 08/15/16 0315 08/15/16 1405 Results 24 hrs Laboratory Tests Test 08/14/16 19:40 08/14/16 20:33 08/14/16 20:35 08/14/16 23:00 White Blood Count 7.3 Red Blood Count 3.79 L Hemoglobin 10.8 L Hematocrit 30.7 L Mean Corpuscular Volume 81.0 L Mean Corpuscular Hemoglobin 28.5 L Mean Corpuscular Hemoglobin Concent 35.2 Red Cell Distribution Width 12.6 Platelet Count 343 Mean Platelet Volume 9.0 Neutrophils % 73.7 Lymphocytes % 19.6 Monocytes % 4.9 Eosinophils % 1.1 Basophils % 0.4 Nucleated Red Blood Cells % 0.0 Neutrophils # 5.4 Lymphocytes # 1.4 Monocytes # 0.4 Eosinophils # 0.1 Basophils # 0.0 Nucleated Red Blood Cells # 0.0 Sodium Level 116 *L 120 L Potassium Level 3.3 L 3.6 Chloride Level 82 L 89 L Carbon Dioxide Level 23 22 Anion Gap 14 13 Blood Urea Nitrogen 9 7 Creatinine 0.63 0.60 Glucose Level 108 97 Osmolality 242 L Calcium Level 9.4 8.5 Total Bilirubin 0.3 Direct Bilirubin 0.00 Indirect Bilirubin 0.3 Aspartate Amino Transf (AST/SGOT) 18 Alanine Aminotransferase (ALT/SGPT) 29 Alkaline Phosphatase 81 Troponin I < 0.012 Total Protein 7.7 Albumin 4.9 Globulin 2.80 Albumin/Globulin Ratio 1.75 Lipase 208 Urine Osmolality 262 Urine Random Sodium 71 Urine Color STRAW Urine Clarity CLEAR Urine pH 5.0 Urine Specific [place] 1.005 Urine Ketones NEGATIVE Urine Nitrite NEGATIVE Urine Bilirubin NEGATIVE Urine Urobilinogen NEGATIVE Urine Leukocyte Esterase 1+ H Urine Microscopic RBC 1 Urine Microscopic WBC 0 Urine Hemoglobin 1+ H Urine Glucose NEGATIVE Urine Total Protein NEGATIVE Test 08/15/16 03:15 08/15/16 06:30 08/15/16 10:45 08/15/16 11:55 White Blood Count 6.0 Red Blood Count 3.53 L Hemoglobin 10.0 L Hematocrit 29.0 L Mean Corpuscular Volume 82.2 Mean Corpuscular Hemoglobin 28.3 L Mean Corpuscular Hemoglobin Concent 34.5 Red Cell Distribution Width 12.5 Platelet Count 314 Mean Platelet Volume 9.1 Neutrophils % 43.3 Lymphocytes % 45.5 Monocytes % 7.1 Eosinophils % 3.3 Basophils % 0.5 Nucleated Red Blood Cells % 0.0 Neutrophils # 2.6 Lymphocytes # 2.8 Monocytes # 0.4 Eosinophils # 0.2 Basophils # 0.0 Nucleated Red Blood Cells # 0.0 Sodium Level 126 L 130 L 131 L Potassium Level 3.4 L 3.5 3.6 Chloride Level 93 L 92 L 92 L Carbon Dioxide Level 23 25 23 Anion Gap 13 17 H 20 H Blood Urea Nitrogen 7 8 7 Creatinine 0.65 0.66 0.69 Glucose Level 91 87 130 # Calcium Level 8.8 9.2 9.5 Thyroid Stimulating Hormone (TSH) 1.180 Creatine Kinase 64 57 Creatine Kinase Index 2.0 1.7 Creatinine Kinase MB (Mass) 1.27 0.97 Troponin I < 0.012 < 0.012 Uric Acid 6.1 Random Cortisol 10.8 Test 08/15/16 14:05 Sodium Level 129 L Potassium Level 3.6 Chloride Level 96 L Carbon Dioxide Level 23 Anion Gap 14 Blood Urea Nitrogen 8 Creatinine 0.76 Glucose Level 119 Calcium Level 9.0 Medications Medications Current Medications Ondansetron HCl (Zofran Inj) 4 mg Q6H PRN IV NAUSEA AND/OR VOMITING; Start at 21:00 Acetaminophen (Tylenol Tab) 650 mg Q6H PRN PO PAIN LEVEL 1-3 OR FEVER; Start at 21:00 Pantoprazole (Protonix Iv) 40 mg DAILY@06 IV Last administered on 08/15/16t 05: 23; Admin Dose 40 MG; Start 08/15/16 at 06:00 Amlodipine Besylate (Norvasc) 5 mg DAILY PO Last administered on 08/15/16 09:33 ; Admin Dose 5 MG; Start 08/15/16 at 09:00 Carvedilol (Coreg) 3.125 mg BID PO Last administered on 08/15/16 09:33; Admin Dose 3.125 MG; Start 08/15/16 at 09:00 Metoprolol Tartrate (Lopressor) 25 mg DAILY PO Last administered on 08/15/16 09 :32; Admin Dose 25 MG; Start 08/15/16 at 09:00 Zolpidem Tartrate (Ambien) 5 mg QHS PRN PO INSOMNIA; Start 08/15/16 at 02:00 Benazepril HCl 10 mg 10 mg DAILY PO Last administered on 08/15/16 09:32; Admin Dose 10 MG; Start 08/15/16 at 09:00 Dextrose (D5W) 1,000 ml @ 125 mls/hr Q8H IV Last administered on 08/15/16 14: 06; Admin Dose 125 MLS/HR; Start 08/15/16 at 13:30 GEORGINA GONZALEZ DO Aug 15, 2016 15:41
--- NOTE | 2016-08-15 17:58 | RADRPT ---
Echocardiogram Report Patient Name: ISAIAS RAMIRES Gender: Female Date: 1935 Study Date: 15-Aug-2016 Early Childhood Education Coordinator: Maximilian [facility] Location: [address] Ref. Physician: JUAN DAVID CHU Quality: Adequate Procedures: Transthoracic echocardiogram with complete 2D, M-Mode, and doppler examination. Indications: Chest Pain. 2D/M Mode Doppler Measurement Value Normal Ranges Measurement Value Normal Ranges LVIDd 2D 4.0 3.5 - 5.6 cm AV Peak Cedrick 1.5 m/sec LVIDs 2D 2.7 2.1 - 4.1 cm AV Peak PG 9.0 mmHg FS 2D 32.0 % AI Peak PG 82.0 mmHg LVPWd 2D 1.0 0.6 - 1.1 cm AI Peak Cedrick 4.5 m/sec IVSd 2D 1.0 0.6 - 1.1 cm AI PHT 547.0 msec IVS/LVPW 2D 1.0 LVOT Peak Cedrick 0.9 m/sec AoR Diam 2D 2.3 2.0 - 3.7 cm LVOT Peak PG 3.0 mmHg LA/Ao 2D 2 0 - 1 MV E Peak Cedrick 0.8 m/sec EDV 2D 64.0 cm3 MV A Peak Cedrick 1.1 m/sec ESV 2D 20.1 cm3 MV E/A 0.7 LA Dimen 2D 3.5 2.3 - 4.0 cm MV Decel Time 303 msec MV E/A 0.7 TR Peak Cedrick 2.7 m/sec TR Peak PG 29.0 mmHg RVSP 32.0 mmHg Findings Left Ventricle: Normal left ventricular systolic function. Normal left ventricular cavity size. Normal left ventricular wall thickness. Ejection fraction is visually estimated at 55 %. Tissue Doppler/Mitral Doppler indices are consistent with impaired relaxation (Stage I diastolic dysfunction). Right Ventricle: Normal right ventricular size. Normal right ventricular systolic function. Left Atrium: The left atrium is normal in size. Right Atrium: The right atrium is normal in size. Mitral Valve: Mild mitral leaflet calcification. Mild mitral annular calcification. Trace mitral regurgitation. Aortic Valve: Aortic sclerosis without stenosis. Mild to moderate aortic valve regurgitation. Tricuspid Valve: Normal appearance of the tricuspid valve. Estimated peak PA systolic pressure 32 mmHg. There is mild tricuspid regurgitation. Pulmonic Valve: Pulmonic valve not well visualized. There is trace pulmonic regurgitation. Pericardium: Normal pericardium with no significant pericardial effusion. Aorta: Normal aortic root. IVC: Normal size and normal respiratory collapse consistent with normal right atrial pressure. Conclusions 1.Normal left ventricular systolic function. Normal left ventricular cavity size. Normal left ventricular wall thickness. Ejection fraction is visually estimated at 55 %. Tissue Doppler/Mitral Doppler indices are consistent with impaired relaxation (Stage I diastolic dysfunction). 2.Mild mitral leaflet calcification. Mild mitral annular calcification. Trace mitral regurgitation. 3.Aortic sclerosis without stenosis. Mild to moderate aortic valve regurgitation. 4.Normal appearance of the tricuspid valve. Estimated peak PA systolic pressure 32 mmHg. There is mild tricuspid regurgitation. Electronically Signed By: David Heredia 15-Aug-2016 17:56:49 -0700 Patient Name: ISAIAS RAMIRES Study Date: 15-Aug-[id number]
[2016-08-15 19:30] LABS: CREATININE 0.69 mg/dl (0.44-1.00); POTASSIUM 3.5 mmol/L (3.5-5.1)
[2016-08-16 00:36] VITALS: PULSE 75
[2016-08-16 04:26] VITALS: PULSE 69
[2016-08-16] MEDS: PANTOPRAZOLE 40 MG INJ IV SCH (06:00)
[2016-08-16 07:28] VITALS: BP 149/67; RESP 18
[2016-08-16] MEDS: BENAZEPRIL 10 MG TAB PO SCH (08:38)
[2016-08-16] MEDS: AMLODIPINE 5 MG TAB PO SCH (08:38)
[2016-08-16] MEDS: METOPROLOL 25 MG TAB PO SCH (08:39)
[2016-08-16 08:50] VITALS: PULSE 67
--- NOTE | 2016-08-16 09:13 | PN ---
Date/Time of Note Date/Time of Note DATE: 08/16/16 TIME: 09:08 Assessment/Plan Lines/Catheters IV Catheter Type (from [facility]): Peripheral IV Urinary Cath still in place: No Assessment/Plan Chief Complaint/Hosp Course 1. hyponatremia, acute vs subacute vs chronic -etiology likely volume depletion for gi loss and hctz, hypokalemia -pt sodium initially corrected from 116 to 130 meq/l with ns. -Patient yesterday was placed on D5 water to lower sodium levels down to prevent overcorrection. The patient sodium levels lower 126 mEq/L. Patient appropriately corrected 10 mEq in a 24 hour period. plan -Continue to monitor serial sodium levels. To prevent overcorrection of 18 mEq in a 48 hour period. -Patient currently is noncompliant with serial sodium checks and IV fluids. -Monitor closely 2. htn -hold hctz -cont norvasc, ccb 3.chest pain: Currently patient is chest pain-free. -r/o acs -check serial trop 4. anemia -monitor h/h level Problems: Subjective 24 Hr Interval Summary Free Text/Dictation Patient yesterday has been clinically stable. She has had no neurological symptoms no nausea no vomiting. No paresthesias. Yesterday patient was placed on D5W to prevent overcorrection of her hyponatremia. The patient appropriately corrected 10 mEq in a 24 hour period. Patient however this morning refused labs refused further IV fluids. No other events noted Exam/Review of Systems Vital Signs Vitals Vital Signs Date Time Temp Pulse Resp B/P Pulse Ox O2 Delivery O2 Flow Rate FiO2 08/16/16 08:50 67 08/16/16 07:28 97.8 18 149/67 98 08/15/16 00:03 Room Air Intake and Output 08/15/16 08/15/16 08/16/16 15:00 23:00 07:00 Intake Total 510 ml 975 ml 1175 ml Output Total 750 ml 850 ml 1500 ml Balance -240 ml 125 ml -325 ml Exam General: Patient is a frail a pleasant female in no acute distress HEENT: Atraumatic, normocephalic. The pupils are equal, round and reactive. Extraocular motor are intact, moist mucous membranes Neck: Supple with full range of motion. No rigidity or meningismus Chest: Nontender Lungs: Clear to auscultation bilaterally no crackles rales or wheezing Heart: Normal S1-S2, Regular rhythm and rate. No overt appreciable murmur Abdomen: Soft , nontender, nondistended , bowel sounds are present. No guarding no rebound tenderness , No masses or organomegaly. No costovertebral temporal angle mass Extremities: Normal to inspection, no edema no cyanosis Neurologic: Normal mental status, speech normal, cranial nerves II through XII are intact, motor and sensory are intact, no focal weakness Results Result Diagram: 08/15/16 0315 08/15/16 2218 Results 24 hrs Laboratory Tests Test 08/15/16 10:45 08/15/16 11:55 08/15/16 14:05 08/15/16 18:55 Sodium Level 131 L 129 L 129 L Potassium Level 3.6 3.6 3.5 Chloride Level 92 L 96 L 96 L Carbon Dioxide Level 23 23 22 Anion Gap 20 H 14 15 Blood Urea Nitrogen 7 8 11 Creatinine 0.69 0.76 0.69 Glucose Level 130 # 119 123 Uric Acid 6.1 Calcium Level 9.5 9.0 9.0 Random Cortisol 10.8 Creatine Kinase 57 Creatine Kinase Index 1.7 Creatinine Kinase MB (Mass) 0.97 Troponin I < 0.012 Test 08/15/16 22:18 Sodium Level 126 L Medications Medications Current Medications Ondansetron HCl (Zofran Inj) 4 mg Q6H PRN IV NAUSEA AND/OR VOMITING; Start at 21:00 Acetaminophen (Tylenol Tab) 650 mg Q6H PRN PO PAIN LEVEL 1-3 OR FEVER Last administered on 08/15/16 17:09; Admin Dose 650 MG; Start 08/14/16 at 21:00 Pantoprazole (Protonix Iv) 40 mg DAILY@06 IV Last administered on 08/15/16 05: 23; Admin Dose 40 MG; Start 08/15/16 at 06:00 Amlodipine Besylate (Norvasc) 5 mg DAILY PO Last administered on 08/16/16 08:38 ; Admin Dose 5 MG; Start 08/15/16 at 09:00 Carvedilol (Coreg) 3.125 mg BID PO Last administered on 08/16/16 08:38; Admin Dose 3.125 MG; Start 08/15/16 at 09:00 Metoprolol Tartrate (Lopressor) 25 mg DAILY PO Last administered on 08/16/16 08 :39; Admin Dose 25 MG; Start 08/15/16 at 09:00 Zolpidem Tartrate (Ambien) 5 mg QHS PRN PO INSOMNIA Last administered on 22:23; Admin Dose 5 MG; Start 08/15/16 at 02:00 Benazepril HCl 10 mg 10 mg DAILY PO Last administered on 08/16/16 08:38; Admin Dose 10 MG; Start 08/15/16 at 09:00 Dextrose (D5W) 1,000 ml @ 50 mls/hr Q20H IV Last administered on 08/15/16 22: 23; Admin Dose 50 MLS/HR; Start 08/15/16 at 13:30 GEORGINA GONZALEZ DO Aug 16, 2016 09:13
[2016-08-16] MEDS ORDERED: BENA10TA48 PO (09:53)
--- NOTE | 2016-08-16 09:55 | PDOCDIS ---
Discharge Instructions CONDITION Patient Condition: Stable HOME CARE INSTRUCTIONS: Special Diet: RENAL ACTIVITY: Activity Restrictions: Slowly Increase Activity FOLLOW UP/APPOINTMENTS Follow-up Plan Follow up with your regular doctor within 5 days for a blood pressure check and a chemistry/electrolyte profile BAKARI ATWOOD MD Aug 16, 2016 09:55
--- NOTE | 2016-08-16 09:56 | DS ---
Date/Time of Note Date/Time of Note DATE: 08/16/16 TIME: 09:55 Discharge Summary Admission/Discharge Info Admit Date/Time Aug 14, 2016 at 20:23 Discharge Date/Time Discharge Diagnosis hypertension, chest pain, hyponatremia Patient Condition: Stable Consults cardiology, nephrology Procedures 7.1 TTE Conclusions 1. Normal left ventricular systolic function. Normal left ventricular cavity size. Normal left ventricular wall thickness. Ejection fraction is visually estimated at 55 %. Tissue Doppler/Mitral Doppler indices are consistent with impaired relaxation (Stage I diastolic dysfunction). 2. Mild mitral leaflet calcification. Mild mitral annular calcification. Trace mitral regurgitation. 3. Aortic sclerosis without stenosis. Mild to moderate aortic valve regurgitation. 4. Normal appearance of the tricuspid valve. Estimated peak PA systolic pressure 32 mmHg. There is mild tricuspid regurgitation. Hx of Present Illness cc: elevated bp, chest presssure. This is a 80-year-old female who presents to the emergency room for evaluation of nausea, vomiting, diarrhea and chest pain. This patient was seen yesterday in the emergency room for uncontrolled hypertension and her blood pressure was controlled and she was discharged home. According to the patient's daughter the patient has been vomiting and has had diarrhea for the past 4 days as well. The patient was complaining of centralized chest pain with no radiation associated with mild shortness of breath. She also states that the current time her blood pressure was not controlled at home and she took some extra doses of her blood pressure medications and it still did not help with her blood pressure. allergies: nkda meds: see MAR Hospital Course Regarding pt's hyponatremia, suspected to be from hctz. This was stopped and Na improved. Of note, even on minimal hypotonic fluids, chemistry panels showed relative overcorrection (rate of Na increase more rapid than preferred rate of 10 mEq/24 hours), prepared foods associate adjusted IVFs. Hctz held and pt's Benicar replaced with just benazepril. Pt's other home BP meds including her ccb/bb's were continued and BPs consistently <160/90 at time of discharge. Regarding chest pain, serial troponins negative. TTE results as above. Cardiology consulted for possible stress test. On morning of patient's discharge she was demanding to leave. Stated that she felt well and no longer wanted to be in the hospital. In the presence of pt's son who served language therapist, it was explained to patient that the cause of her chest pain had not yet been determined. A stress test was advised to make sure there was nothing wrong with her heart, and without this information it was possible that permanent heart damage, even may occur. Additionally, pt's sodium levels were still quite low and it was explained to patient that without close monitoring it was possible her sodium level could also increase or decrease rapidly which could also be quite serious and possibly cause permanent damage or even . Pt still insisted on leaving. AMA form signed in son's presence. CHANGES FROM ADMIT MEDS STOPPED BENICAR STARTED BENAZEPRIL Home Meds Active Scripts Benazepril Hcl* (Benazepril Hcl*) 10 Mg Tablet, 10 MG PO DAILY for 14 Days, #14 TAB Prov:BAKARI ATWOOD MD 08/16/16 Reported Medications Carvedilol* (Carvedilol*) 3.125 Mg Tablet, 3.125 MG PO BID, #60 TAB 08/14/16 Olmesartan-Hydrochlorothiazide (Benicar HCT) 20-12.5 Mg Tablet, 1 TAB PO DAILY, #30 TAB 08/14/16 Ramipril (Ramipril) 2.5 Mg Capsule, 2.5 MG PO DAILY, CAP 08/14/16 Zolpidem Tartrate* (Zolpidem Tartrate*) 5 Mg Tablet, 5 MG PO QHS Y for INSOMNIA , #30 TAB 08/14/16 Metoprolol Tartrate* (Lopressor*) 25 Mg Tab, 25 MG PO DAILY, #60 TAB 08/14/16 Amlodipine Besylate* (Norvasc*) 5 Mg Tablet, 5 MG PO DAILY, TAB 08/14/16 Discontinued Reported Medications Metoprolol Tartrate* (Lopressor*) Unknown Strength Tab, PO, #60 TAB 05/29/15 Losartan/Hydrochlorothiazide (Hyzaar 100-25 Tablet) 1 Tab Tablet, 1 TAB PO DAILY 10/18/10 Donepezil* (Aricept*) 10 Mg Tablet, 10 MG PO DAILY 10/18/10 Amlodipine Besylate* (Amlodipine Besylate*) 5 Mg Tablet, 5 MG PO DAILY 10/18/10 Zolpidem Tartrate* (Ambien*) 10 Mg Tablet, 10 MG PO QHS 10/18/10 Clonazepam* (Klonopin*) 0.5 Mg Tab, 0.5 MG PO BID 10/18/10 Methimazole* (Methimazole*) 5 Mg Tablet, 5 MG PO DAILY 10/18/10 Follow-up Plan PCP within 5 days for BP check and ChemP Primary Care Provider Not On Staff Doctor Time spent on discharge: > 30 minutes Pending Labs Laboratory Tests Test 08/15/16 10:45 08/15/16 11:55 08/15/16 14:05 08/15/16 18:55 Sodium Level 131mmol/L (135-144) 129mmol/L (135-144) 129mmol/L (135-144) Potassium Level 3.6mmol/L (3.5-5.1) 3.6mmol/L (3.5-5.1) 3.5mmol/L (3.5-5.1) Chloride Level 92mmol/L (97-110) 96mmol/L (97-110) 96mmol/L (97-110) Carbon Dioxide Level 23mmol/L (21-31) 23mmol/L (21-31) 22mmol/L (21-31) Anion Gap 20 (8-16) 14 (8-16) 15 (8-16) Blood Urea Nitrogen 7mg/dl (7-20) 8mg/dl (7-20) 11mg/dl (7-20) Creatinine 0.69mg/dl (0.44-1.00) 0.76mg/dl (0.44-1.00) 0.69mg/dl (0.44-1.00) Glucose Level 130mg/dl (70-220) 119mg/dl (70-220) 123mg/dl (70-220) Uric Acid 6.1mg/dl (3.1-7.9) Calcium Level 9.5mg/dl (8.4-10.2) 9.0mg/dl (8.4-10.2) 9.0mg/dl (8.4-10.2) Random Cortisol 10.8ug/dl Creatine Kinase 57IU/L (23-200) Creatine Kinase Index 1.7 Creatinine Kinase MB (Mass) 0.97ng/ml (0.0-2.4) Troponin I < 0.012ng/ml (0.00-0.12) Test 08/15/16 22:18 Sodium Level 126mmol/L (135-144) BAKARI ATWOOD MD Aug 16, 2016 09:55
== END 2016-08-16 10:50 | disposition left against medical advice (07) | DRG 313 ==
LOC: E/R 18:38 → TEL 20:23
PROVIDERS: ADMIT Family Medicine; ATTEND Family Medicine
DX: R07.9 Chest pain, unspecified (principal); I25.10 Atherosclerotic heart disease of native coronary artery without angina pectoris; E87.1 Hypo-osmolality and hyponatremia; G30.9 Alzheimer's disease, unspecified; D64.9 Anemia, unspecified; F02.80 Dementia in other diseases classified elsewhere, unspecified severity, without behavioral disturbance, psychotic disturbance, mood disturbance, and anxiety; I10 Essential (primary) hypertension; E78.5 Hyperlipidemia, unspecified
CPT/HCPCS: 36415; 71010; 80048; 80053; 81001; 82533; 82550; 82553; 83690; 83930; 83935; 84295; 84300; 84443; 84484; 84560; 85025; 93005; 93306; 96374; 96375; C9113; J2405; J3480; J7030; J7070

== ENCOUNTER 2017-06-30 20:52 | Observation (INO) | END 2017-07-01 15:19 | disposition home or self-care (01) ==

== ENCOUNTER 2017-09-29 21:13 | Inpatient (IN) | END 2017-10-04 19:02 | disposition home health service (06) | DRG 640 ==